=== PATIENT | female | born 2000 | race African-American/Black ===

== ENCOUNTER 2020-08-09 03:54 | Emergency (ER) | payer SELFPAY ==
[~2020-08-09] VITALS: Ht 157.5 cm; Wt 52.3 kg
[2020-08-09 03:56] VITALS: BP 140/90
== END 2020-08-09 04:34 | disposition left against medical advice (07) ==
LOC: EMS 03:55
DX: R10.9 Unspecified abdominal pain (principal); Z53.21 Procedure and treatment not carried out due to patient leaving prior to being seen by health care provider

== ENCOUNTER 2023-10-27 11:09 | Inpatient (IN) | payer MEDICAID ==
[~2023-10-27] VITALS: Ht 160 cm; Wt 59.0 kg
[2023-10-27] VITALS (8 sets, daily range): BP systolic 122–145; BP diastolic 60–92; PULSE 72–112; RESP 16–18; TEMP 96.8–97.8; O2SAT 96–100
[2023-10-27] MEDS ORDERED: DiphenhydrAMINE HCL 50 MG/ML VIAL ONE (12:26)
[2023-10-27] MEDS ORDERED: HALOPERIDOL LACTATE 5 MG/ML VIAL ONE (12:26)
[2023-10-27] MEDS: HALOPERIDOL LACTATE 5 MG/ML VIAL IM ONE (12:34)
[2023-10-27] MEDS: DiphenhydrAMINE HCL 50 MG/ML VIAL IM ONE (12:34)
[2023-10-27 13:43] LABS: COVID AG,FIA SOURCE NASAL SWAB
[2023-10-27 14:13] LABS: SARS-COV2 (COVID) ANTIGEN,FIA Negative (Negative)
[2023-10-27] MEDS ORDERED: HALOPERIDOL 5 MG TABLET PO PRN (17:30)
[2023-10-27 17:47] LABS: BASOPHILS % (AUTO) 0.6 % (0.0-2.0); EOSINOPHILS % (AUTO) 2.8 % (1.0-6.0); HEMOGLOBIN 11.9 g/dL (12.0-16.0); LYMPHOCYTES # (AUTO) 1.3 K/uL (1.0-4.8); LYMPHOCYTES % (AUTO) 27.5 % (22.0-44.0); MEAN CORPUSCULAR HEMOGLOBIN 27.8 pg (26.0-34.0); MEAN CORPUSCULAR HGB CONC 32.2 G/dL (31.0-37.0); MEAN CORPUSCULAR VOLUME 86 fL (80-100); MONOCYTES # (AUTO) 0.5 K/uL (0.1-1.0); MONOCYTES % (AUTO) 11.4 % (2.0-9.0); NEUTROPHILS # (AUTO) 2.7 K/uL (1.8-7.7); NEUTROPHILS % (AUTO) 57.7 % (40.0-70.0); PLATELET COUNT (AUTO) 307 K/uL (150-450); RED BLOOD CELL COUNT(AUTO) 4.29 MIL/uL (4.00-5.20); RED CELL DISTRIBUTION WIDTH 15.9 % (11.5-14.5); WHITE BLOOD COUNT (AUTO) 4.6 K/uL (4.5-11.0)
[2023-10-27 18:04] LABS: ALCOHOL, BLOOD (SERUM) 187 mg/dL (0-10)
[2023-10-27 18:22] LABS: ANION GAP 12 mmol/L (8-16); CALCIUM, TOTAL 8.8 mg/dL (8.8-10.5); CARBON DIOXIDE 25 mmol/L (22-29); CHLORIDE 105 mmol/L (98-107); CREATININE 0.76 mg/dL (0.60-1.30); GLOMERULAR FILTR. RATE CALC > 60 mL/min (>60); GLUCOSE,RANDOM 67 mg/dL (70-110); POTASSIUM 3.9 mmol/L (3.5-5.1); SODIUM SERUM 142 mmol/L (136-145); UREA NITROGEN, BLOOD 5 mg/dL (7-18)
[2023-10-28] VITALS (7 sets, daily range): BP systolic 112–147; BP diastolic 65–97; PULSE 69–99; RESP 17–18; TEMP 96.7–98; O2SAT 99–100
[2023-10-28] MEDS: ZOLPIDEM TARTRATE 10 MG TABLET PO PRN (01:53)
[2023-10-28] MEDS ORDERED: ONDANSETRON HCL 4 MG TABLET PO PRN (10:30)
[2023-10-28] MEDS ORDERED: MAGNESIUM HYDROXIDE SUSPENSION 30 ML UDCUP PO PRN (10:30)
[2023-10-28] MEDS ORDERED: LOPERAMIDE HCL 2 MG CAPSULE PO PRN (10:30)
[2023-10-28] MEDS ORDERED: IBUPROFEN 400 MG TABLET PO PRN (10:30)
[2023-10-28] MEDS ORDERED: ACETAMINOPHEN 325 MG TABLET PO PRN (10:30)
[2023-10-28] MEDS ORDERED: NICOTINE 14 MG/24 HOUR PATCH TD PRN (10:30)
[2023-10-28] MEDS ORDERED: ALBUTEROL SULFATE HFA 90 MCG/PUFF 8 GM INHALER IH PRN (10:30)
[2023-10-28] MEDS ORDERED: MAG HYDROX/ALUMINUM HYD/SIMETH ES 30 ML SUSPENSION UDCUP PO PRN (10:30)
[2023-10-28] MEDS ORDERED: DOCUSATE SODIUM 100 MG CAPSULE PO PRN (10:30)
[2023-10-28] MEDS ORDERED: PETROLATUM,WHITE 28 GM JELLY TP PRN (10:30)
[2023-10-28] MEDS ORDERED: CloNIDine HCL 0.1 MG TABLET PO PRN (10:30)
[2023-10-28] MEDS ORDERED: GuaiFENesin/D-METHORPHAN [SUGAR-FREE] 200-20MG/10 ML SYRUP UDCUP PO PRN (10:30)
[2023-10-29] MEDS: LORazepam 2 MG TABLET PO PRN (04:44)
[2023-10-30 07:54] LABS: APPEARANCE,URINE CLEAR (CLEAR); BILIRUBIN,URINE NEGATIVE (NEGATIVE); COLOR,URINE LIGHT YELLOW (YELLOW); GLUCOSE, URINE (UA) NEGATIVE (NEGATIVE); KETONES,URINE NEGATIVE (NEGATIVE); LEUKOCYTE ESTERASE ,URINE NEGATIVE (NEGATIVE); NITRATE,URINE NEGATIVE (NEGATIVE); OCCULT BLOOD,URINE NEGATIVE (NEGATIVE); PH,URINE 7.5 (5.0-8.0); PH,URINE DRUG SCREEN 7.5 (5.0-8.0); PROTEIN,URINE NEGATIVE (NEGATIVE); SPECIFIC GRAVITIY, URINE 1.009 (1.003-1.030); UROBILINOGEN,URINE <=1.0 mg/dL (<=1.0)
[2023-10-30 07:59] LABS: AMPHET/METH SCREEN,URINE NEGATIVE (NEGATIVE); BARBITURATE SCREEN, URINE NEGATIVE (NEGATIVE); BENZODIAZEPINES SCREEN,URINE NEGATIVE (NEGATIVE); CANNABINOID SCREEN,URINE POSITIVE (NEGATIVE); COCAINE SCREEN,URINE NEGATIVE (NEGATIVE); METHADONE SCREEN, URINE NEGATIVE (NEGATIVE); OPIATE SCREEN,URINE NEGATIVE (NEGATIVE); PHENCYCLIDINE SCREEN,URINE NEGATIVE (NEGATIVE)
[2023-10-30 08:13] LABS: ALCOHOL, URINE DRUG SCREEN NEGATIVE (NEGATIVE)
== END 2023-10-29 16:35 | disposition home or self-care (01) | DRG 751 ==
LOC: EMS 11:09 → B3A 17:24
PROVIDERS: ADMIT Psychiatry & Neurology Psychiatry; ATTEND Psychiatry & Neurology Psychiatry
DX: F29 Unspecified psychosis not due to a substance or known physiological condition (principal); D64.9 Anemia, unspecified; Z20.822 Contact with and (suspected) exposure to COVID-19; Y90.6 Blood alcohol level of 120-199 mg/100 ml; F12.90 Cannabis use, unspecified, uncomplicated; F10.229 Alcohol dependence with intoxication, unspecified
CPT/HCPCS: 80048; 80307; 81003; 85025; G0480; J1200; J1630

== ENCOUNTER 2025-01-28 10:12 | Emergency (ER) | payer OTHER, MEDICAID ==
[~2025-01-28] VITALS: Ht 167.6 cm; Wt 49.2 kg
[2025-01-28 11:20] VITALS: BP 130/82; PULSE 110; RESP 20; TEMP 98.2; O2SAT 100
[2025-01-28] MEDS: PERTUSS(ACELL),DIPH,TET/PF 0.5 ML SYRINGE [ADULT] IM. ONE (11:34)
[2025-01-28] MEDS: BACITRACIN 0.9 GM PACKET OINTMENT TP ONE (11:39)
== END 2025-01-28 12:16 ==
LOC: EMS 10:13
DX: S80.211A Abrasion, right knee, initial encounter (principal); S80.212A Abrasion, left knee, initial encounter; Z65.3 Problems related to other legal circumstances; Y04.0XXA Assault by unarmed brawl or fight, initial encounter; Y93.89 Activity, other specified; Y92.89 Other specified places as the place of occurrence of the external cause; Y99.8 Other external cause status
CPT/HCPCS: 90471; 90715; 99283